=== PATIENT | female | born 1960 | race Caucasian/White ===

== ENCOUNTER 2016-03-19 05:57 | Emergency (ER) | payer OTHER ==
[~2016-03-19] VITALS: Ht 160 cm; Wt 86.4 kg
[2016-03-19 06:00] VITALS: BP 153/101; PULSE 95; RESP 18; O2SAT 98
--- NOTE | 2016-03-19 06:27 | ED.REPORT ---
HPI-Abd Pain F 40 and Over Date of Service Mar 19, 2016 ED Provider: Chantel Hendricks MD The patient is a 55 year old female with history of chronic kidney disease and COPD, who presents to the emergency department complaining of a band-like epigastric pain that began this morning. The patient got up to use the restroom this morning and when she climbed back into bed she noticed left shoulder pain that radiated into her epigastric region. Her pain radiates into her bilateral shoulder blades. She states the pain feels like "contractions." She has also noticed increased acid reflux. She has been taking more omeprazole than normal and Excedrin (regular and 2 PM). She reports recently noticing "bright red" streaks in her stools but is unsure if it was due to something she ate. She denies fever, chills, cough, shortness of breath, diaphoresis, nausea, or tarry stools. Nursing Notes Stated Complaint: CHEST PAIN Chief Complaint: General Complaint Nursing Notes Reviewed: Yes Allergies: Coded Allergies: No Known Allergies (Unverified , 01/27/16) Scheduled PRN Ondansetron ODT (Zofran ODT) 4 Mg Tablet 4 MG PO Q4H PRN PRN For Nausea oxyCODONE-Acetaminophen 5-325 mg (oxyCODONE-Acetaminophen 5-325 mg) 1 Each Tablet 1-2 TAB PO Q6H PRN PRN For Pain General Time Seen by MD: 06:26 Chief Complaint Other (epigastric pain) Hx Obtained From: Patient Arrived By: Walk-in Sudden in Onset?: Yes Onset Occurred: 1 - 4 hours ago Symptom Duration: Waxes and wanes Progression since Onset: Waxes and wanes Location: : Epigastric Quality: Painful Severity: Current: Moderate Severity: Maximum: Severe Recent Healthcare: No recent doctor visit, No recent hospitalization Similar Sx Previous: No Past Medical History Past Medical History Hypertension COPD CKD Chronic cough Migraines Hyperthyroidism Past Surgical History None reported Smoking History Current Every Day Smoker Social History Alcohol Use: Denies alcohol use Other Social History: Local resident Ambulatory Status Independent Review of Systems +acid reflux Constitutional: Denies: Chills, Fever Respiratory: Denies: Non-productive cough, Shortness of breath GI: Reports: Abdominal pain, Denies: Hematemesis, Hematochezia, Nausea, Vomiting Musculoskeletal: Reports: Joint pain Complete sys rev & neg: except as marked. Skin: Denies Diaphoresis Physical Exam Vital Signs Vital Signs (First) Date Time Temp Pulse Resp B/P Pulse Ox O2 Delivery O2 Flow Rate FiO2 03/19/16 06:00 36.1 95 18 153/101 98 Room Air Initial VS: Reviewed Head / Eyes: Atraumatic, Normocephalic, PERRL ENT: Mucous membranes moist, Conjunctiva normal, No scleral icterus Neck: Supple, Non-tender, Full range of motion Lymphatic: No lymphadenopathy Extremities: Vascular intact, Neuro intact, No swelling, No tenderness Skin: Warm, Dry, No cyanosis Neurologic: Alert, Oriented, Nonfocal Psychiatric: Mood/affect normal, Behavior normal, Normal thought content General/Constitutional: Awake, Alert Respiratory / Chest: Atraumatic, Breath sounds NL, Breath sounds = bilat, No respiratory distress, No rales, No rhonchi, No wheezing, No stridor Cardiovascular: Heart rate NL, Regular rhythm, Heart sounds NL, No murmurs, No rubs, Peripheral circulation NL Abdomen: Soft, McBurney's non-tender, No guarding, No rebound, BS normoactive, No distention, No hernia, No palpable mass, No pulsatile mass Tenderness/Guarding/Rebound: Positive: Tender LUQ... (Mild), Tender RUQ... ( Moderate), Tender epigastric (mild) Back: Inspection NL, No midline vertebral tend, No CVA tenderness left-sided subscapular musculoskeletal pain Rectum / Perineum: Atraumatic Interpretation & Diagnostics ABDOMINAL US IMPRESSION: 1. Increased hepatic echogenicity noted likely related to fatty infiltration of the liver but other sources of hepatocellular disease cannot be excluded. Recommend clinical correlation. 2. Cholelithiasis. 3. Superior pole right renal cyst. Dictated by: Alphonse GARCIA Interpreted: Jazmyne Rajan MD on 03/19/2016 at 9 :22 Lab Results Interpretation Result Diagram: 03/19/16 0621 03/19/16 0621 Test 03/19/16 06:21 White Blood Count 10.4th/mm3 (3.8-10.1) Red Blood Count 4.25mil/mm3 (3.90-5.20) Hemoglobin 12.2g/dL (12.0-15.6) Hematocrit 38.2% (35.0-46.0) Mean Corpuscular Volume 89.9fL (81-100) Mean Corpuscular Hemoglobin 28.7pg (27.0-35.0) Mean Corpuscular Hemoglobin Concent 31.9% (32.0-37.0) Red Cell Distribution Width 14.8% (12.3-15.4) Platelet Count 314bil/L (150-400) Neutrophils (%) (Auto) 64.2% (40-74) Lymphocytes (%) (Auto) 25.3% (14-46) Monocytes (%) (Auto) 5.4% (4-12) Eosinophils (%) (Auto) 4.0% (0-5) Basophils (%) (Auto) 0.5% (0-3) Hold Purple Top Tube Received (Received) Hold Blue Top Tube Received (Received) Sodium Level 140mEq/L (134-144) Potassium Level 4.6mEq/L (3.5-5.2) Chloride Level 100mEq/L (97-108) Carbon Dioxide Level 23mmol/L (18-29) Blood Urea Nitrogen 29mg/dL (6-24) Creatinine 1.23mg/dL (0.57-1.00) Estimat Glomerular Filtration Rate 65mL/min (>59) Glucose Level 89mg/dL (60-99) Calcium Level 10.1mg/dL (8.5-10.1) Magnesium Level 2.3mg/dL (1.6-2.6) Total Bilirubin 0.2mg/dL (0.0-1.2) Aspartate Amino Transf (AST/SGOT) 17U/L (0-50) Alanine Aminotransferase (ALT/SGPT) 19U/L (0-32) Alkaline Phosphatase 83U/L (25-150) Troponin T 0.010ug/L (0.0-0.011) Total Protein 7.8g/dL (6.4-8.4) Albumin 4.6g/dL (3.4-5.0) Lipase 15U/L (13-60) Hold Red Top Tube Received (Received) Hold [place] Top Tube Received (Received) ECG Interpretation Time: 06:11 Interpreted by: ED physician Normal ECG Interpretation: Normal ECG w/ rate of... (90), Normal rate, Normal sinus rhythm, No acute ischemic changes, Normal QRS, Normal axis, Normal intervals, No change from prior ECGs (take on 01/27/2016), Adequate tracing X-Ray Chest Interpretation Chest Xray Interpretation: IMPRESSION: No acute cardiopulmonary disease. Dictated by: Alphonse GARCIA Interpreted: Jazmyne Rajan MD on 03/19/2016 at 9:21 Interpretation / Wet Read by: Interpret - Radiologist Re-Eval/Medical Decision Source of Hx: Old records Re-Evaluation/Progress : Time of Eval: 09:48 Re-Evaluation/Progress Note: Rechecked the patient. The pain is still present but she is feeling much better. Discussed findings, diagnosis, and plan for discharge. All questions were addressed. Counseled Regarding: Diagnosis, Lab results, Need for follow-up, When/why to return to ED Discharge & Departure Primary Impression: Gallstones Ruled Out: Cholecystitis, Obstruction of gallbladder Disposition: Home Discharge Condition All VS Reviewed: Yes Condition: Stable Patient Instructions: Cholelithiasis (DC) Additional Instructions: Thank you for entrusting us with your care today. Your ultrasound today shows evidence of gallstones. There is no evidence of an infection or obstruction at this time. You will need to followup up with a surgeon to further discuss your new diagnosis of gallstones. We have given you a referral to Dr. Nelson. Call his office today to schedule an appointment. Use Percocet as needed for pain and Zofran as needed for nausea. I also recommend avoiding fatty foods. Return to the emergency department if you develop increased pain, uncontrollable vomiting, fever, or any other new or concerning symptoms. Referrals: Bertin Nelson MD, Rachel M DO Scribe Attestation Portions of this note were transcribed by Gilma De La Cruz. I, Dr. Hendricks personally performed the history, physical exam and medical decision-making; I reviewed and confirmed the accuracy of the information in the transcribed note. Signed by: Jaren Younger, 03/19/2016 and 1015. copies to: Bertin Nelson MD; Piedad Tellez Shawna L MD Mar 19, 2016 06:27 Gilma De La Cruz Mar 19, 2016 06:33
[2016-03-19] MEDS ORDERED: 0.9% Sodium Chloride 1,000 ML IV ONE (06:42)
[2016-03-19] MEDS ORDERED: HYDROmorphone 0.5 mg/0.5 mL iSecure Syringe IVPUSH PRN (06:45)
[2016-03-19] MEDS ORDERED: Pantoprazole 4 mg/mL 10 mL Inj IVPUSH ONE (06:45)
[2016-03-19] MEDS ORDERED: Ondansetron 2 mg/mL 2 mL Inj IVPUSH PRN (06:45)
[2016-03-19] MEDS ORDERED: Alum-Mag Hydrox-Simeth 30 mL Suspension PO ONE (06:45)
[2016-03-19 06:57] LABS: TROPONIN T 0.01 ug/L (0.0-0.011)
[2016-03-19 06:58] LABS: BASOPHILS % (AUTO) 0.5 % (0-3); MONOCYTES % (AUTO) 5.4 % (4-12); Mean Corpuscular Hemoglobin 28.7 pg (27.0-35.0); Mean Corpuscular Volume 89.9 fL (81-100); NEUTROPHILS % (AUTO) 64.2 % (40-74); Platelet Count 314 bil/L (150-400)
[2016-03-19 07:15] LABS: Magnesium 2.3 mg/dL (1.6-2.6)
--- NOTE | 2016-03-19 09:21 | DRSVH ---
PROCEDURE: X-RAY CHEST ONE VIEW, PORTABLE ([id number]) INDICATIONS: chest pain TECHNIQUE: One view of the chest was acquired. COMPARISON: [facility], CR, XR CHEST 1VW (PORTABLE), 01/27/2016, 11:06. FINDINGS: Surgical changes and devices: None. Lungs and pleura: No pleural effusions or pneumothorax. Lungs are clear. Mediastinum: Mediastinal contours appear normal. Heart size is normal. Bones and chest wall: No suspicious bony lesions. Overlying soft tissues appear unremarkable. IMPRESSION: No acute cardiopulmonary disease. Dictated by: Alphonse Mckinney [facility] Interpreted: Jazmyne Rajan MD on 03/19/2016 at 9:21 Transcribed by: YONATAN on 03/19/2016 at 9:21 Approved by: Jazmyne Rajan MD, PhD on 03/19/2016 at 16:44
--- NOTE | 2016-03-19 09:24 | DRSVH ---
PROCEDURE: US ABDOMEN INDICATIONS: RUQ pain TECHNIQUE: Real-time scanning was performed of the abdominal and retroperitoneal organs, with image documentatio n. COMPARISON: None. FINDINGS: Liver length: 15.76 cm Gallbladder Wall Thickness: 2.40 mm CHD: 1.70 mm CBD: 8.20 mm Spleen length: 9.73 cm Right kidney length: 10.26 cm Left kidney length: 10.68 cm Aorta(Proximal): 2.34 cm Aorta(Mid): 1.91 cm Aorta(Distal): 1.55 cm RCIA: 9.40 mm LCIA: 9 mm Liver: Liver is diffusely increased in echogenicity. No focal hepatic abnormalities identified. No rmal hepatic size. Gallbladder: Multiple gallstones present. No gallbladder wall thickening or pericholecystic fluid. Negative sonographic Krishna sign. Biliary ducts: Intrahepatic bile ducts are non-dilated. Extrahepatic bile duct caliber is normal. Normal is 6-7 mm or less in diameter, or 10 mm or less post-cholecystectomy. Pancreas: Visualized portions of the pancreas are sonographically normal. Spleen: Spleen is normal in size and homogeneous in echotexture. Kidneys: Kidneys are normal in size and echotexture. No hydronephrosis or nephrolithiasis. No david d masses. 15 mm right renal cyst. Aorta: Visualized aorta is normal in caliber at less than 3 cm. Iliacs: Proximal common iliac arteries are normal in caliber at less than 2.5 cm. IVC: Intrahepatic inferior vena cava is patent. Miscellaneous: No free abdominal fluid. IMPRESSION: 1. Increased hepatic echogenicity noted likely related to fatty infiltration of the liver but other s ources of hepatocellular disease cannot be excluded. Recommend clinical correlation. 2. Cholelithiasis. 3. Superior pole right renal cyst. Dictated by: Alphonse Mckinney RRA Interpreted: Jazmyne Rajan MD on 03/19/2016 at 9:22 Transcribed by: YONATAN on 03/19/2016 at 9:23 Approved by: Jazmyne Rajan MD, PhD on 03/19/2016 at 16:44
[2016-03-19 09:28] VITALS: BP 125/47; PULSE 87; RESP 14; O2SAT 96
[2016-03-19] MEDS ORDERED: ONDA4TAB9 PO (10:08)
[2016-03-19] MEDS ORDERED: OXYC1TAB24 PO (10:08)
[2016-03-19 10:29] VITALS: BP 120/51; PULSE 68; RESP 14; O2SAT 97
[2016-04-09] MEDS ORDERED: IMITREX INH (17:28)
[2016-04-09] MEDS ORDERED: AMIT10TA6 PO (17:28)
[2016-04-09] MEDS ORDERED: ALBU90AE IH (17:28)
[2016-04-09] MEDS ORDERED: LEVO100C2 PO (17:28)
[2016-04-09] MEDS ORDERED: OMEP20CA11 PO (17:28)
[2016-04-09] MEDS ORDERED: FLUT9.9S NS (17:28)
[2016-04-09] MEDS ORDERED: CYCL5TAB PO (17:28)
[2016-04-09] MEDS ORDERED: PROM12.510 PO (17:28)
== END 2016-03-19 10:32 | disposition home or self-care (01) ==
LOC: SED 05:57
DX: K80.20 Calculus of gallbladder without cholecystitis without obstruction (principal); I12.9 Hypertensive chronic kidney disease with stage 1 through stage 4 chronic kidney disease, or unspecified chronic kidney disease; N18.9 Chronic kidney disease, unspecified; J44.9 Chronic obstructive pulmonary disease, unspecified; E03.9 Hypothyroidism, unspecified; K21.9 Gastro-esophageal reflux disease without esophagitis; F17.200 Nicotine dependence, unspecified, uncomplicated
CPT/HCPCS: 36415; 71010; 76700; 80053; 83690; 83735; 84484; 85025; 93005; 96361; 96374; 99285; J7030

== ENCOUNTER 2016-04-13 09:21 | Day surgery (SDC) | payer OTHER ==
[2016-04-13] VITALS (14 sets, daily range): BP systolic 87–131; BP diastolic 57–79; PULSE 78–88; RESP 6–18; O2SAT 91–100
[~2016-04-13] VITALS: Ht 162.6 cm; Wt 84.9 kg
[~2016-04-13 09:21] MED LIST: ALBU90AE IH; AMIT10TA6 PO; CYCL5TAB PO; CeFAZolin Inj 2 GM in IV Premix 1 EACH IV ONE; FLUT9.9S NS; IMITREX INH; LEVO100C2 PO; OMEP20CA11 PO; PROM12.510 PO
[2016-04-13] MEDS ORDERED: Glycopyrrolate 0.2 mg/mL 5 mL Inj ONE (09:22)
[2016-04-13] MEDS ORDERED: Propofol 10,000 mCg/mL 20 mL Inj ONE (09:22)
[2016-04-13] MEDS ORDERED: Neostigmine 1 mg/mL 5 mL Inj ONE (09:22)
[2016-04-13] MEDS ORDERED: Dexamethasone 4 mg/mL Inj ONE (09:22)
[2016-04-13] MEDS ORDERED: EPHEDrine/NS 5 mg/mL 5 mL Syringe ONE (09:22)
[2016-04-13] MEDS ORDERED: Vasopressin 20 Unit/mL Inj ONE (09:22)
[2016-04-13] MEDS ORDERED: Ondansetron 2 mg/mL 2 mL Inj ONE (09:22)
[2016-04-13] MEDS ORDERED: HYDROmorphone 2 mg/mL Inj ONE (09:22)
[2016-04-13] MEDS ORDERED: Rocuronium 10 mg/mL 5 mL Inj ONE (09:22)
[2016-04-13] MEDS ORDERED: Phenylephrine/NS 100 mCg/mL 10 mL Syringe IVPUSH ONE (09:22)
[2016-04-13] MEDS: Lactated Ringer's 1,000 ML IV SCH ×3 (09:29→13:12)
[2016-04-13] MEDS ORDERED: CeFAZolin Inj 2 gm / 50mL D5W IV ONE (09:43)
[2016-04-13] MEDS ORDERED: Phenylephrine 10,000 mCg/mL Inj IVPUSH PRN (10:55)
[2016-04-13] MEDS ORDERED: fentaNYL-PF 50 mCg/mL 2 mL Inj IVPUSH PRN (10:55)
[2016-04-13] MEDS ORDERED: Lactated Ringer's 1,000 ML IV SCH (10:55)
[2016-04-13] MEDS ORDERED: HYDROmorphone 1 mg/mL Inj IVPUSH PRN (10:55)
[2016-04-13] MEDS ORDERED: EPHEDrine Sulfate 50 mg/mL Inj IVPUSH PRN (10:55)
[2016-04-13] MEDS ORDERED: Ondansetron 2 mg/mL 2 mL Inj IVPUSH PRN (10:55)
[2016-04-13] MEDS ORDERED: hydrALAZINE 20 mg/mL Inj IVPUSH PRN (10:55)
[2016-04-13] MEDS ORDERED: Labetalol 5 mg/mL 4 mL Inj IV PRN (10:55)
[2016-04-13] MEDS ORDERED: EPHEDrine Sulfate 50 mg/mL Inj IM PRN (10:55)
[2016-04-13] MEDS ORDERED: Lactated Ringer's 500 ML IV PRN (10:55)
[2016-04-13] MEDS ORDERED: Atropine 0.4 mg/mL Inj IVPUSH PRN (10:55)
--- NOTE | 2016-04-13 10:55 | PCM.HPANE ---
Patient Data Date of Service: Apr 13, 2016 Surgeon Admitting Provider: Attending Provider:Bertin Nelson MD Primary Care Physician:Piedad Tellez DO Other Provider:Aakash De La O Anesthesia Reason for Visit Biliary Colic Ht/WT & BMI Height (Feet): 5 Height (Inches): 4 Weight (Kilograms): 84.9 Body Mass Index 31.00 Allergies Coded Allergies: sertraline (Verified Adverse Reaction, Severe, INEFFECTIVE, 04/09/16) Past Anesthesia History Anesthesia History: Denies:: Anesthesia Reactions, Malignant Hyperthermia Diabetes History Hx Diabetes?: No Current Bedside Blood Glucose: 85 MRSA MRSA: No Medications Hypertension Medication: No Home Meds Incl Beta Zhanna: No Reported Medications [Imitrex Nasal Tutor Key] No Conflict Check1-2 Sprays INH PRN MR IN 2 HRS PRN 04/09/16 Levothyroxine (Tirosint)100 Mcg Csvbytw729 Mcg PO DAILY 04/09/16 Promethazine 12.5 Mg Mqoral13.5 Mg PO Q4-6H PRN PRN 04/09/16 Albuterol Sulfate (Proair Respiclick)90 Mcg Aer.pow.ba90 Mcg IH Q4-6H PRN PRN 04/09/16 Omeprazole 20 Mg Capsule.dr20-40 Mg PO BID PRN PRN Ref 0 04/09/16 Cyclobenzaprine 5 Mg Tablet5 Mg PO TID PRN Spasm 04/09/16 Amitriptyline 10 Mg Wqsspg412 Mg PO HS Ref 0 04/09/16 Discontinued Reported Medications Fluticasone Propionate (Flonase Allergy Relief)50 Mcg/Actuation Tutor Key.susp9.9 Ml NS BID 04/09/16 Discontinued Scripts Ondansetron ODT (Zofran ODT)4 Mg Tablet4 Mg PO Q4H PRN For Nausea #20 TABLET Prov:Chantel Hendricks MD 03/19/16 oxyCODONE-Acetaminophen 5-325 mg 1 Each Tablet1-2 Tab PO Q6H PRN For Pain #20 TABLET Prov:Chantel Hendricks MD 03/19/16 History History of ENT Problems?: Yes HEENT History: Positive for:: Sinus Problem (ALLERGIC RHINITIS) Denture Type: Full- Upper Full- Lower Hx of Heart Problems?: Yes Cardiovascular History: Positive for:: Chest Pain (01/2016 R/T GALLBLADDER) Hypertension Denies:: Congestive Heart Failure Heart Murmur Other Cardiac History: C/OF BRUISING EASILY Hx of Respiratory Problem?: Yes Respiratory History: Positive for:: COPD Cough (CHRONIC (SMOKER)) Use of Inhalers / NEBS Denies:: Tuberculosis Use of C-PAP Machine Hx Neurologic Problems?: Yes Neurological History: Positive for:: Headaches Hx of GI Problems?: Yes Gastrointestinal History: Positive for:: Gall Bladder Disease (BILIARY COLIC= CURRENT PROBLEM) Gastroesphageal Reflux Hx of Problems?: Yes Genitourinary History: Denies:: HX of Hemodialysis (MILD CHRONIC RENAL INSUFFICIENCY) Female Hx: Denies:: Currently (S/P BTL) Skin History: Denies:: History Skin Disorders? Pressure Ulcers Hx Musculoskeletal Problems?: Yes Musculoskeletal History: Denies:: Back Injury (C/OF BACK PAIN) Hx of Psycho/Social Problems?: Yes Psycho Social History: Positive for:: Anxiety Hx Surgeries?: Yes (BTL) Hx Any Other Health Problems?: Yes Other History: Positive for:: Thyroid Disease Denies:: Cancer Endocrine Disease Hospitalization History Blood Transfusions: Denies:: Blood Transfusions Hx Diabetes: NoBedside Blood Glucose: 85 Hx Alcohol Use: NoHx Substance Use: No Smoking Status: Current Every Day Smoker Have You Smoked inLast 12 mo: YesApprox How Many Cigarettes/day: 1/2 PPD X 35YRS-INTERESTED IN QUITTING Stop/Bang Treated for Sleep Apnea?: No Do You Have a CPAP Machine?: No S-Snoring: Do You Snore Loudly: No T-Tired: feel tired, fatigued: Yes O-Obsered: Observed not breath: No P-Blood Pressure: treated: Yes B- Body Mass Index > 35 kg/m2: No A- Age over 50: Yes N- Neck Large Circumference: No G- Gender Male: No ROSALBA Total Score: 3 ROSALBA Risk Assessment: Low Risk, <3 Yes Risk Assessment Category Category 1A: Patient has history of documented sleep apnea, and HAS NOT received any narcotic, sedative or anesthesia administration during this stay. Category 1B: Patient has history of documented sleep apnea, and HAS received any narcotic , sedative or anesthesia administration during this stay Category 2: Patient has SUSPECTED Obstructive Sleep Apnea, and HAS received any narcotic , sedative or anesthesia administration during this stay. Category 3: Patient has SUSPECTED Obstructive Sleep Apnea and HAS NOT received narcotic, sedative or anesthesia administration during this stay. Category 4: Outpatient in Procedural Areas with known sleep apnea or who screen positive for High Risk via the STOP/BANG questionnaire. Exam Exam Vital Signs Vital Signs Date Time Temp Pulse Resp B/P Pulse Ox O2 Delivery O2 Flow Rate FiO2 04/13/16 09:52 36.6 88 18 115/72 98 Room Air General Appearance: Alert, Oriented X3, Cooperative, No Acute Distress HEENT/AIRWAY: MP 2, Neck Movement (from), Mouth Opening (normal), Other ( eduentulous) Lungs: Clear to Auscultation, Normal Air Movement Heart: Exam Unremarkable, Regular Rate/Rhythm, No Murmurs/Rubs/Gallops Meds/Labs/Diagnostics Admission Meds Current Medications Lactated Ringer's (Lr) 1,000 ml @ 120 mls/hr Q8H20M IV Last administered on 09:29; Start 04/13/16 at 05:00; Stop 04/13/16 at 13:19 Gabapentin (Neurontin) 600 mg PREOP ONCE PO Last administered on 04/13/16 09: 51; Start 04/13/16 at 06:00; Stop 04/13/16 at 06:01; Status DC Acetaminophen (Tylenol) 1,000 mg PREOP ONCE PO Last administered on 04/13/16 09:51; Start 04/13/16 at 06:00; Stop 04/13/16 at 06:01; Status DC Celecoxib (CeleBREX) 200 mg STK-MED ONCE .ROUTE Last administered on 04/13/16 09:51; Start 04/13/16 at 09:42; Stop 04/13/16 at 09:45; Status DC Scopolamine (Transderm-Scop Patch) 1.5 mg STK-MED ONCE TOPICAL Last administered on 04/13/16 09:51; Start 04/13/16 at 09:43; Stop 04/13/16 at 09:45 ; Status DC Bedside Blood Glucose: 85 Plan Impression Patient chart reviewed, patient interviewed and anesthestic plan with risks, benefits, and alternatives discussed, and informed consent obtained. NPO Status: 11pm ASA Physical Status: ASA3 Severe Disease (CKD, COPD) Anesthetic Plan: GA Bene/Risks/Altern/Consents: Yes HP Complete Prior to Induction: Yes Shewmaker,Todd J MD Apr 13, 2016 10:55
[2016-04-13] MEDS ORDERED: Bupivacaine-MPF 0.5% 30 mL Inj INFILTRATE ONE (11:23)
[2016-04-13] MEDS ORDERED: HYDROcodone-APAP 5-325 mg Tablet PO PRN ×2 (12:30→12:35)
--- NOTE | 2016-04-13 13:18 | OP ---
[address] [address] OPERATIVE REPORT PATIENT: JULIET AVENDAÑO : 1960 MR#: [id number] ADMIT: 04/13/2016 JOB ID: [id number] DATE OF SURGERY: 04/13/2016 PREOPERATIVE DIAGNOSIS(ES): Chronic calculous cholecystitis. POSTOPERATIVE DIAGNOSIS(ES): Same procedure laparoscopic cholecystectomy. SURGEON: Bertin Nelson MD BUSINESS PROCESS MODELER: Mau Bautista PA-C INDICATIONS: The patient is a 55-year-old female who was in the emergency department in early January with chest pain but then returned in late February with epigastric pain that radiated into her back. She is found to have gallstones without cholecystitis. She has no history of pancreatitis or choledocholithiasis. After discussing options with the patient, it was elected to proceed with a laparoscopic cholecystectomy, possible open, cholecystectomy, possible cholangiograms. FINDINGS: She had chronic calculous cholecystitis. Cholangiograms were attempted, but I could not advance the cholangiocatheter through a cystic duct valve in order in order to do cholangiograms. DESCRIPTION OF PROCEDURE: At the beginning and end of the operation, the SCOAP checklist was completed. A general endotracheal anesthetic was induced. Using ChloraPrep, she was prepped and draped in the usual fashion. All incisions and trocar sites were infiltrated with 0.5% plain bupivacaine. An infraumbilical incision was made, the abdominal cavity was entered, a cannula inserted, and the abdomen insufflated with CO2. Accessory 5 mm ports were placed under direct visualization in the upper midline and two in the right upper quadrant. The gallbladder fundus was identified and elevated. Adhesions between omentum and the gallbladder were taken down with cautery, blunt dissection, and sharp dissection. The infundibulum was exposed with very careful sharp dissection, dividing adhesions that adhered the duodenum to it. After exposing the infundibulum, the gallbladder was elevated and the infundibulum retracted inferiorly and laterally, and with cautery and sharp and blunt dissection the triangle of Calot was dissected, identifying the artery with an associated Calot's lymph node and the cystic duct. The cystic duct was controlled with a clip at the junction of the gallbladder and the cystic duct. An incision was made in the cystic duct; but, as stated above, I could not advance the catheter far enough into the cystic duct because of a valve to allow cholangiograms to be performed. The triangle of Calot was completely dissected free. There were no other tubular structures other than the cystic artery and so I placed three clips proximally in the cystic duct and it was sharply divided. After placing two clips proximally and one distally on the cystic artery, it was divided. The gallbladder was dissected away from the liver using cautery and placed into a specimen bag. The subhepatic space and subphrenic space were irrigated with saline and aspirated. There was no evidence of bleeding or bile leak. The specimen bag was removed through the umbilical port. All trocars were removed without evidence of bleeding. The umbilical fascial incision was closed with running 0 Vicryl and the skin incisions with subcuticular 4-0 Vicryl, Steri-Strips, and Band-Aids. The estimated blood loss was 10 mL. There were no apparent complications. The final sponge, needle, and instrument counts were announced as correct and the patient was returned to recovery in stable condition. The only specimen was the gallbladder. Critical assistance was provided by Mau Bautista PA-C.
--- NOTE | 2016-04-13 13:40 | PCM.ANEP1 ---
Post Anesthesia Phase 1 PACU Phase 1 Assessment Date of Service: Apr 13, 2016 Vital Signs Vital Signs Date Time Temp Pulse Resp B/P Pulse Ox O2 Delivery O2 Flow Rate FiO2 04/13/16 13:30 36.4 83 16 87/57 99 Nasal Cannula 2 04/13/16 13:11 85 9 101/66 94 Nasal Cannula 3 04/13/16 13:05 84 8 102/68 94 Nasal Cannula 3 04/13/16 13:00 85 10 104/71 91 Room Air 04/13/16 12:55 83 9 99/76 100 Simple Mask 10 04/13/16 12:50 81 8 110/72 100 Simple Mask 10 04/13/16 12:45 80 10 116/79 100 Simple Mask 10 04/13/16 12:40 79 6 118/78 100 Simple Mask 10 04/13/16 12:37 78 8 122/78 100 Simple Mask 10 04/13/16 12:30 80 10 122/74 100 Simple Mask 10 04/13/16 12:27 36.7 81 9 131/79 100 Simple Mask 10 04/13/16 09:52 36.6 88 18 115/72 98 Room Air Anesthetic Administered: GA Level of Alertness: Sleepy, easy to arouse SCRUGGS's with Equal Strength: Yes Pain: No Nausea or Vomiting: No Oxygen Delivery: Nasal Cannula Lungs: Clear to Auscultation, Normal Air Movement Dermatome Level: Full Sensation Todd Hughes MD Apr 13, 2016 13:40
--- NOTE | 2016-04-13 14:27 | PCM.ANEP2 ---
Post Anesthesia Evaluation ASA/CMS Post Anesthesia Date of Service: Apr 13, 2016 VS in Patient's Normal Range?: Yes Resp Stable; Airway Patent?: Yes CV Function & Hydration Stable: Yes Mental Status Recovered?: Yes Pain control Satisfactory?: Yes N/V Control Satisfactory?: Yes Todd Hughes MD Apr 13, 2016 14:27
[2016-04-14] MEDS ORDERED: RIZA10TA23 PO (05:32)
[2016-04-14] MEDS ORDERED: PROC25SU30 RC (05:33)
--- NOTE | 2016-04-15 14:07 | PATH ---
SURGICAL PATHOLOGY Attending Physician:Georgie Warner CASE STATUS: Signed Out PATIENT NAME: JULIET AVENDAÑO PID: [id number] : 1960 DATE COLLECTED:04/13/2016 20:06 SPECIMEN: Gallbladder CLINICAL HISTORY: 1). GALLBLADDER FINAL DIAGNOSIS: 1.GALLBLADDER: CHOLELITHIASIS WITH ASSOCIATED CHRONIC CHOLECYSTITIS. ICD10 CODE K80.66 GROSS DESCRIPTION: The specimen is received in one formalin filled container labeled with the patient's name, sublabeled "gallbladder" and consists of an opened 8.5 x 3.0 x 2.5 CM gallbladder. The serosa is smooth. The wall is 0.2-0.4 CM in thickness. The mucosa is a dark green in color. The lumen contains a dark green mucoid material and 3 green gregory rough calculi which range in size from 0.9-1.1 CM. 5 disability representative sections are submitted in one cassette. 04/13/2016 DAC MICRO DESCRIPTION: See diagnosis. ICD-9 CODES: CPT CODES: 1: 92349 Electronically Signed Out Ariel Walters MD [facility] [address], [place] [address] Technical component performed at [facility], [address] [place] [address] Ave[address], [place], [address]
== END 2016-04-13 23:59 | disposition home or self-care (01) ==
LOC: SAS 09:21
PROVIDERS: ATTEND Surgery
DX: K80.10 Calculus of gallbladder with chronic cholecystitis without obstruction (principal); K21.9 Gastro-esophageal reflux disease without esophagitis; I12.9 Hypertensive chronic kidney disease with stage 1 through stage 4 chronic kidney disease, or unspecified chronic kidney disease; J44.9 Chronic obstructive pulmonary disease, unspecified; N18.9 Chronic kidney disease, unspecified; J30.9 Allergic rhinitis, unspecified; F41.9 Anxiety disorder, unspecified; F17.210 Nicotine dependence, cigarettes, uncomplicated
CPT/HCPCS: 47562; 88304; J0690; J1100; J1170; J2370; J2405; J2710; J7120

== ENCOUNTER 2016-04-14 03:32 | Emergency (ER) | payer OTHER ==
[~2016-04-14] VITALS: Ht 162.6 cm; Wt 87.3 kg
[~2016-04-14 03:32] MED LIST changes: -CeFAZolin Inj 2 GM in IV Premix 1 EACH IV ONE; -FLUT9.9S NS
[2016-04-14 03:43] VITALS: BP 151/104; PULSE 90; RESP 18; O2SAT 99
--- NOTE | 2016-04-14 03:51 | ED.REPORT ---
HPI-Abd Pain F 40 and Over Date of Service Apr 14, 2016 ED Provider: Dr. Rosas Godinez M.D. A 55 year old female with a medical history including hypertension, CKD, COPD, migraines, and biliary colic s/p cholecystectomy presents to the ED with a migraine onset three days ago. Associated symptoms include right-sided abdominal pain, nausea, and vomiting. She denies hematochezia or hematemesis. Yesterday the patient underwent a cholecystectomy. Nursing Notes Stated Complaint: POST GALLBLADDER SURGERY VOMITING/NAUSEA Chief Complaint: Female Abdominal Pain Nursing Notes Reviewed: Yes Allergies: Coded Allergies: sertraline (Verified Adverse Reaction, Severe, INEFFECTIVE, 04/09/16) Scheduled ([Imitrex Nasal [place]]) 1-2 SPRAYS INH PRN MR IN 2 HRS PRN Amitriptyline (Amitriptyline) 10 Mg Tablet 100 MG PO HS Levothyroxine (Tirosint) 100 Mcg Capsule 100 MCG PO DAILY Scheduled PRN Albuterol Sulfate (Proair Respiclick) 90 Mcg Aer.pow.ba 90 MCG IH Q4-6H PRN PRN PRN Cyclobenzaprine (Cyclobenzaprine) 5 Mg Tablet 5 MG PO TID PRN PRN Spasm Omeprazole (Omeprazole) 20 Mg Capsule.dr 20-40 MG PO BID PRN PRN PRN Prochlorperazine Maleate (Compazine Suppository) 25 Mg Supp.rect 25 MG RC Q8 PRN PRN For Nausea/Vomiting Promethazine (Promethazine) 12.5 Mg Tablet 12.5 MG PO Q4-6H PRN PRN PRN Rizatriptan ODT (Maxalt [employer]ILD DEVELOPMENT CONSULTANT) 10 Mg Tablet 10 MG PO [id number] PRN PRN migraine General Time Seen by MD: 03:50 Chief Complaint Other (Migraine) Hx Obtained From: Patient Arrived By: Walk-in Sudden in Onset?: Yes Onset Occurred: 3 days ago Symptom Duration: Since onset Location: : Diffuse (Head): RLQ: RUQ Quality: Painful Severity: Current: Moderate Severity: Maximum: Moderate Associated with: Reports: Nausea, Vomiting, Denies: Fever Pertinent Negative: Relieved by nothing Context Related History: Reports: Abdominal surgery, GERD Recent Healthcare: Recent doctor visit, Previous surgery Similar Sx Previous: Yes Past Medical History Past Medical History Hypertension COPD CKD Chronic cough Migraines Hyperthyroidism Biliary colic GERD Past Surgical History Cholecystectomy Smoking History Current Every Day Smoker Social History Alcohol Use: Denies alcohol use Other Social History: Local resident Ambulatory Status Independent Review of Systems Constitutional: Denies: Fever Respiratory: Denies: Non-productive cough, Shortness of breath GI: Reports: Abdominal pain (Right-sided), Nausea, Vomiting, Denies: Hematemesis, Hematochezia Complete sys rev & neg: except as marked. Neurologic: Reports: Headache Physical Exam Vital Signs Vital Signs (First) Date Time Temp Pulse Resp B/P Pulse Ox O2 Delivery O2 Flow Rate FiO2 04/14/16 03:43 36.1 90 18 151/104 99 Room Air Initial VS: Reviewed Head / Eyes: Atraumatic, Normocephalic ENT: Conjunctiva normal, No scleral icterus Neck: Supple, Full range of motion Skin: Warm, Dry, No cyanosis Psychiatric: Mood/affect normal, Behavior normal, Normal thought content General/Constitutional: Awake, Alert Respiratory / Chest: Breath sounds NL, Breath sounds = bilat, No respiratory distress Cardiovascular: Heart rate NL, Regular rhythm, Heart sounds NL Abdomen: Non-tender Bowel Sounds / Distention: Positive: Distention mild Surgical wounds normal, no bleeding or drainage Neurologic: Oriented X3, Speech NL, No motor deficits, No sensory deficits Interpretation & Diagnostics Lab Results Interpretation Result Diagram: 04/14/16 0416 04/14/16 0416 Test 04/14/16 04:05 04/14/16 04:16 Hold Srivastava Top Tube Received (Received) White Blood Count 10.5th/mm3 (3.8-10.1) Red Blood Count 4.29mil/mm3 (3.90-5.20) Hemoglobin 12.3g/dL (12.0-15.6) Hematocrit 38.8% (35.0-46.0) Mean Corpuscular Volume 90.4fL (81-100) Mean Corpuscular Hemoglobin 28.7pg (27.0-35.0) Mean Corpuscular Hemoglobin Concent 31.7% (32.0-37.0) Red Cell Distribution Width 14.2% (12.3-15.4) Platelet Count 305bil/L (150-400) Neutrophils (%) (Auto) 78.0% (40-74) Lymphocytes (%) (Auto) 14.8% (14-46) Monocytes (%) (Auto) 6.3% (4-12) Eosinophils (%) (Auto) 0.3% (0-5) Basophils (%) (Auto) 0.2% (0-3) Prothrombin Time 10.4sec (8.1-12.5) Prothromb Time International Ratio 0.97ratio Sodium Level 139mEq/L (134-144) Potassium Level 4.0mEq/L (3.5-5.2) Chloride Level 97mEq/L (97-108) Carbon Dioxide Level 29mmol/L (18-29) Blood Urea Nitrogen 10mg/dL (6-24) Creatinine 0.72mg/dL (0.57-1.00) Estimat Glomerular Filtration Rate 120mL/min (>59) Glucose Level 106mg/dL (60-99) Calcium Level 9.1mg/dL (8.5-10.1) Magnesium Level 2.0mg/dL (1.6-2.6) Total Bilirubin 0.2mg/dL (0.0-1.2) Aspartate Amino Transf (AST/SGOT) 29U/L (0-50) Alanine Aminotransferase (ALT/SGPT) 25U/L (0-32) Alkaline Phosphatase 74U/L (25-150) Total Protein 7.3g/dL (6.4-8.4) Albumin 4.2g/dL (3.4-5.0) Lipase 11U/L (13-60) Re-Eval/Medical Decision Med Decision/Clinical Course 55-year-old who has been nothing by mouth for surgery, and removed from her usual sources of caffeine. She presents with a perioperative migraine headache. She is much improved after standard migraine cocktail. Discharged home in stable condition. Source of Hx: Old records Re-Evaluation/Progress : Time of Eval: 05:30 Patient Status: Condition improved Re-Evaluation/Progress Note: Patient feels much better and is ready to go home. Discussed with patient lab results, diagnosis, and plan for discharge. Follow-up and return to the ER instructions given. Patient agrees with plan for care and all questions were addressed. Counseled Regarding: Diagnosis, Lab results, Need for follow-up, When/why to return to ED Discharge & Departure Shift Change Sign-Out Response to Therapy: Improved Primary Impression: Migraine Migraine type: unspecified Status migrainosus presence: with status migrainosus Intractability: not intractable Qualified Code: G43.901 - Migraine, unspecified, not intractable, with status migrainosus Disposition: Home Discharge Condition All VS Reviewed: Yes Condition: Improved Patient Instructions: Migraine Headache (ED) Additional Instructions: Resume your usual meds. You may try Maxalt CHILD DEVELOPMENT CONSULTANT under your tongue for migraine. It is often not covered by insurance, but can be obtained fairly cheaply at [facility] pharmacy. Compazine suppository can also be effective both for migraine and nausea. Follow-up with your doctor in the office. Referrals: Piedad Tellez DO (PCP) Radhaibe Attestation Portions of this note were transcribed by Marguerite Anderson. I, Dr. Godinez, personally performed the history, physical exam, and medical decision-making; I reviewed and confirmed the accuracy of the information in the transcribed note. Signed by: Jaren Lopez, 04/14/2016, 06:04 copies to: Piedad Tellez Christopher W MD Apr 14, 2016 03:51 MARGUERITE ANDERSON Apr 14, 2016 04:12
[2016-04-14] MEDS ORDERED: 0.9% Sodium Chloride 1,000 ML IV ONE (03:52)
[2016-04-14] MEDS ORDERED: Haloperidol 5 mg/mL Inj IVPUSH ONE (03:55)
[2016-04-14] MEDS ORDERED: Ondansetron 2 mg/mL 2 mL Inj IVPUSH ONE (03:55)
[2016-04-14 04:24] LABS: BASOPHILS % (AUTO) 0.2 % (0-3); EOSINOPHILS % (AUTO) 0.3 % (0-5); MONOCYTES % (AUTO) 6.3 % (4-12); Mean Corpuscular Hemoglobin 28.7 pg (27.0-35.0); Mean Corpuscular Volume 90.4 fL (81-100); Platelet Count 305 bil/L (150-400)
[2016-04-14 04:40] LABS: INR 0.97 ratio
[2016-04-14] MEDS ORDERED: RIZA10TA23 PO (05:32)
[2016-04-14] MEDS ORDERED: PROC25SU30 RC (05:33)
[2016-04-14 05:45] VITALS: BP 145/92; PULSE 87; RESP 16; O2SAT 99
== END 2016-04-14 05:45 | disposition home or self-care (01) ==
LOC: SED 03:32
DX: G43.901 Migraine, unspecified, not intractable, with status migrainosus (principal); I13.0 Hypertensive heart and chronic kidney disease with heart failure and stage 1 through stage 4 chronic kidney disease, or unspecified chronic kidney disease; N18.9 Chronic kidney disease, unspecified; K21.9 Gastro-esophageal reflux disease without esophagitis; F17.200 Nicotine dependence, unspecified, uncomplicated; Z88.8 Allergy status to other drugs, medicaments and biological substances
CPT/HCPCS: 36415; 80053; 83690; 83735; 85025; 85610; 96361; 96374; 96375; 99284; J1200; J1630; J2405; J7030